=== PATIENT | male | born 1980 | race African-American/Black ===

== ENCOUNTER → 2020-06-30 | Outpatient (CLI) | payer OTHER ==
--- NOTE | 2020-06-30 11:26 | RAD ---
EXAM: CT ABDOMEN/PELVIS WITHOUT CONTRAST. HISTORY: Flank pain, renal stones. TECHNIQUE: Computed tomography of the abdomen and pelvis was performed without intravenous contrast. One or more of the following individualized dose reduction techniques were utilized for this examinat ion: 1. Automated exposure control. 2. Adjustment of the mA and/or kV according to patient size. 3. Use of iterative reconstruction technique. COMPARISON: None. FINDINGS: Lung windows through the visualized portions of the bases reveal mild atelectasis. Bone win dows reveal no suspicious lesions. Subcentimeter hypoattenuating foci within the liver most likely represent benign cysts in the absence of known malignancy. The gallbladder, spleen and adrenal glands are unremarkable. There is questiona ble mild stranding about the pancreatic head. The pancreatic and common duct are not dilated. No foca l pancreatic lesion is appreciable without contrast. A mildly hypoattenuating mass medially in the left renal interpolar region measures approximately 2.3 cm. This may represent a complicated cyst but is indeterminate without contrast. No right renal lesi ons are appreciable. There are no renal or ureteral calculi. There is mild bladder wall thickening. T he prostate is not clearly enlarged for patient age. The appendix is not inflamed. There is no small bowel obstruction. There are no pathologically enlarg ed lymph nodes. IMPRESSION: 1. Questionable mild stranding about the pancreatic head. Correlate with lipase to assess for pancrea titis. 2. 2.3 cm indeterminate mass at the left renal interpolar region medially. This is most likely a comp licated cyst. Sonography could further differentiate cystic from solid lesions. 3. Mild bladder wall thickening suggests inflammation. Correlate with urinalysis. Electronically signed by: Merari Bojorquez MD (06/30/2020 11:24 AM) [id number]
== END ==
LOC: CT 09:24
PROVIDERS: ATTEND Preventive Medicine Occupational Medicine
DX: N20.0 Calculus of kidney (principal); N28.9 Disorder of kidney and ureter, unspecified
CPT/HCPCS: 74176

== ENCOUNTER → 2021-04-16 | Outpatient (CLI) | payer OTHER ==
--- NOTE | 2021-04-16 16:12 | RAD ---
EXAM: US RENAL BILAT 04/16/2021 1:15 PM INDICATION: Left renal mass. COMPARISON: CT abdomen pelvis 06/30/2020 TECHNIQUE: Grayscale and color Doppler ultrasound images of the left kidney FINDINGS: The right kidney measures 11.9 x 4.8 x 4.5 cm. The left kidney measures 10.2 x 5.3 x 4.1 cm. Renal echogenicity and cortical thickness are normal. No hydronephrosis. There is anechoic simple cyst wit h through transmission in the superior medial left kidney, measuring 1.9 x 1.8 x 1.9 cm. The urinary bladder is unremarkable. The aorta is normal in caliber. The IVC is patent at the level the liver. IMPRESSION: 1.9 cm simple left renal cyst corresponding with the abnormality on CT. No follow-up is n eeded based on imaging. Electronically signed by: Angélica Mejía MD (04/16/2021 4:09 PM) [facility]
== END ==
LOC: US 13:05
PROVIDERS: ATTEND Physician Assistant Medical
DX: N28.1 Cyst of kidney, acquired (principal); N28.89 Other specified disorders of kidney and ureter
CPT/HCPCS: 76770